=== PATIENT | male | born 1955 | race Two or more races ===

== ENCOUNTER 2018-09-28 11:44 | Emergency (ER) | payer MEDICAID ==
[~2018-09-28] VITALS: Ht 167.6 cm; Wt 70.3 kg
[2018-09-28] MEDS ORDERED: IV NS 0.9% 1,000 ML IV ONE (12:00)
[2018-09-28] MEDS ORDERED: THIAMINE HCL 100 MG TABLET PO ONE (12:00)
--- NOTE | 2018-09-28 12:03 | NUR ---
PT REC'D TO ER ETOH IN CUSTUDY IV STARTED 20G LEFT FA NS AND THIAME 100 MG PO GIVEN PER MD AWAITING EVALUATION BY ER PROVIDER.
[2018-09-28 12:08] LABS: BASOPHILS % (AUTO) 1.4 % (0.0-2.0); EOSINOPHILS % (AUTO) 0.5 % (0.0-6.0); HEMATOCRIT 38 % (39-51); HEMOGLOBIN 12.9 g/dL (13.5-17.5); LYMPHOCYTES # (AUTO) 0.5 /CMM (0.8-4.8); LYMPHOCYTES % (AUTO) 16.4 % (20.0-44.0); MEAN CORPUSCULAR HGB CONC 34 g/dl (31.0-36.0); MEAN CORPUSCULAR VOLUME 96 fL (80-96); MONOCYTES # (AUTO) 0.3 /CMM (0.1-1.30); MONOCYTES % (AUTO) 9.7 % (2.0-12.0); NEUTROPHILS # (AUTO) 2.3 /CMM (1.8-8.9); PLATELET COUNT (AUTO) 105 /CMM (150-450); RED BLOOD CELL COUNT(AUTO) 3.95 MIL/uL (4.5-6.0); WHITE BLOOD COUNT (AUTO) 3.2 K/uL (4.3-11.0)
[2018-09-28] MEDS ORDERED: THIAMINE HCL 100 MG TABLET ONE (12:08)
[2018-09-28 12:14] LABS: CALCIUM, SERUM 8.4 mg/dL (8.5-10.1); CARBON DIOXIDE 30 mmol/L (21-32); CHLORIDE 95 mmol/L (98-107); CREATININE 0.8 mg/dL (0.6-1.3); GLUCOSE 98 mg/dL (74-106); POTASSIUM 4.1 mmol/L (3.5-5.1); SODIUM SERUM 136 mmol/L (136-145); UREA NITROGEN, BLOOD 8 mg/dL (7-18)
[2018-09-28 12:19] LABS: ALANINE AMINOTRANSFERASE 82 U/L (12-78); ALBUMIN 3.8 g/dL (3.4-5.0); ALCOHOL, BLOOD 10 mg/dL (0-0); ALKALINE PHOSPHATASE 89 U/L (46-116); ASPARTATE AMINOTRANSFERASE 162 U/L (15-37); BILIRUBIN,DIRECT 0.8 mg/dL (0.0-0.2); BILIRUBIN,TOTAL 1.7 mg/dL (0.2-1.0); TOTAL PROTEIN, SERUM 7.8 g/dL (6.4-8.2)
[2018-09-28 12:20] LABS: SALICYLATE < 2.8 mg/dL (2.8-20.0)
[2018-09-28] MEDS ORDERED: Folic acid 1 MG in IV D5W 50 ML IV SCH (13:00)
[2018-09-28] MEDS ORDERED: Magnesium 1 GM/2 ML VIAL IV ONE (13:00)
[2018-09-28] MEDS ORDERED: FOLIC ACID 1 MG TABLET ONE (13:15)
--- NOTE | 2018-09-28 14:57 | NUR ---
TRISTIAN FROM [facility] CALLED WITH BED INFO PATIENT WILL BE TX TO [facility] [place] ROOM [id number] NUMBER TO GIVE REPORT [phone] NURSE TRINA [facility] ETA [id number]
--- NOTE | 2018-09-28 16:38 | NUR ---
pt stable for transfer vss
[2018-09-28 16:39] VITALS: BP 164/100
== END 2018-09-28 16:41 | disposition short-term general hospital (02) ==
LOC: ER 11:47
DX: F10.239 Alcohol dependence with withdrawal, unspecified (principal); E83.42 Hypomagnesemia; I10 Essential (primary) hypertension; Y90.0 Blood alcohol level of less than 20 mg/100 ml
CPT/HCPCS: 36415; 80048; 80076; 80307; 80329; 83735; 85025; 96365; 96368; 99285; G0480; J3475; J3490; J7030; J7060